=== PATIENT | male | born 1960 | race Hispanic/Latino ===

== ENCOUNTER 2019-09-15 09:44 | Day surgery (SDC) | payer OTHER ==
[2019-09-15] MEDS ORDERED: ceFAZolin/STERILE WATER 2 GM/20 ML SYRINGE IV NR (10:30)
[2019-09-15] MEDS ORDERED: SODIUM CHLORIDE 0.9% 1000 ML 1,000 ML ONE (10:44)
--- NOTE | 2019-09-15 10:49 | Anesthesia Consultation ---
Anesthesia Consult and Med Hx Date of service: 09/15/19 - Airway Anesthetic Teeth Evaluation: Good, Caps, Crowns ROM Head & Neck: Adequate Mental/Hyoid Distance: Adequate Mallampati Class: Class III Intubation Access Assessment: Possibly Difficult - Pre-Operative Health Status ASA Pre-Surgery Classification: ASA3 Proposed Anesthetic Plan: General - Pulmonary Hx Smoking: Yes (STOPPED X 24 YRS) Hx Sleep Apnea: Yes (DX SLEEP APNEA WITH NO CPAP USE AMA) - Cardiovascular System Hx Hypertension: No - Endocrine Hx Renal Disease: Yes (kidney stones) - Other Systems Hx Cancer: No Hx Obesity: Yes (BMI 37.5)
--- NOTE | 2019-09-15 10:50 | Anesthesia Day of Surgery ---
Anesthesia Day of Surgery - Day of Surgery Patient Examined: Yes Patient H&P Reviewed: Yes Patient is NPO: Yes
[2019-09-15] MEDS ORDERED: MIDAZOLAM 2 MG/2 ML INJ IV NR (11:00)
[2019-09-15] MEDS ORDERED: SODIUM CHLORIDE 0.9% 1000 ML 1,000 ML IV SCH (11:00)
[2019-09-15] MEDS ORDERED: FAMOTIDINE 20 MG/2 ML INJ IV NR (11:00)
[2019-09-15] MEDS ORDERED: fentaNYL 100 MCG/2 ML INJ ONE (11:29)
[2019-09-15] MEDS ORDERED: LIDOCAINE MPF (2%) 20 MG/1 ML VIAL 5 ML ONE (11:29)
[2019-09-15] MEDS ORDERED: propofoL 200 MG/20 ML VIAL IV ONE (11:30)
[2019-09-15] MEDS ORDERED: dexAMETHasone 20 MG/5 ML VIAL ONE (11:32)
[2019-09-15] MEDS ORDERED: ONDANSETRON 4 MG/2 ML INJ ONE (11:32)
[2019-09-15] MEDS ORDERED: MIDAZOLAM 2 MG/2 ML INJ ONE (12:21)
[2019-09-15] MEDS ORDERED: KETOROLAC 30 MG/1 ML INJ ONE (12:47)
[2019-09-15] MEDS ORDERED: FUROSEMIDE 40 MG/4 ML INJ ONE (13:01)
[2019-09-15] MEDS ORDERED: WATER FOR IRRIG STERILE 2000 ML IR ONE (13:07)
[2019-09-15] MEDS ORDERED: GENTAMICIN/NS 80 MG/100 ML 100 ML IV SCH (13:27)
[2019-09-15] MEDS ORDERED: GENTAMICIN 40 MG/ML VIAL 2 ML ONE (13:51)
[2019-09-15] MEDS ORDERED: SODIUM CHLORIDE 0.9% 0 ML ONE (13:53)
--- NOTE | 2019-09-15 13:59 | Operative Report ---
PREOPERATIVE DIAGNOSIS: Large upper ureteral stone. POSTOPERATIVE DIAGNOSIS: Large upper ureteral stone. PROCEDURE: Cystoscopy, ureteroscopy, retrograde stone transposition, double-J stent. SURGEON: Dr. Gutierres. ANESTHESIA: General. FINDINGS: This is a gentleman with a large stone in the upper ureter. He now presents for treatment. All risks and implications discussed. DESCRIPTION OF PROCEDURE: The patient was brought to the operating room and placed on the operating table. Following induction of anesthesia, placed in lithotomy position, prepped and draped in usual sterile fashion. Cystourethroscopy showed the stone at the level of L3. Retrograde showed the stone and there was kinking just below it. We were able to place two wires up in the ureter. Balloon dilatation was carried out. We got up to the stone, could not look like we pushed it up into the kidney. We could not get by the narrowed area. We tried even with a little dilator, the inner sheath from the ureteral sheath. Since it was very tight, we did not want to perforate. We placed a 6 double J, brought to recovery in stable condition. Family notified. JOB# [id number] LATONIA/TIM
--- NOTE | 2019-09-15 14:24 | Fluoroscopy Report ---
INTRAOPERATIVE FLUOROSCOPY: RETROGRADE UROGRAPHY AND LEFT NEPHROSTOMY PLACEMENT. INDICATION / CLINICAL INFORMATION: LT KIDNEY STONE. TECHNIQUE: Intraoperative spot images were obtained during the procedure. FINDINGS: Images show cystography, left retrograde ureteroscopy with balloon dilation and left ureteral stent p lacement. Please see operative note for complete detail. Fluoroscopy Time: 2.1 minutes. Fluoroscopy Images: 10. Signer Name: Campos Tran MD Signed: 09/15/2019 2:20 PM Workstation Name: [id number]
--- NOTE | 2019-09-15 14:55 | Post Anesthesia Evaluation ---
- Post Anesthesia Evaluation Patient Participated: Yes Airway Patent: Yes Stable Respiratory Function: Yes Nausea/Vomiting: No Temp > 96.8F: Yes Pain Manageable: Yes Adequeate Hydration: Yes Anesthesia Complications: No
--- NOTE | 2019-09-15 15:04 | Post Operative Note ---
Date of procedure: 09/15/19 Pre-op diagnosis: l ureteral stone Post-op diagnosis: same Findings: as above Procedure: cysto ureteroscopy j stent Anesthesia: GETA Surgeon: KOBY VAZQUEZ Estimated blood loss: minimal Pathology: none Condition: stable Disposition: PACU
--- NOTE | 2019-09-15 15:05 | Discharge Summary ---
Short Stay Discharge Plan Activity: other (no straining ) Weight Bearing Status: Full Weight Bearing Diet: low fat, low cholesterol, low salt Special Instructions: other (inc fluids ) Follow up with: STEPHANIE HARDING MD [Primary Care Provider] - 7 Days KOBY VAZQUEZ MD [Staff Physician] - 7 Days
[2019-09-15 15:15] VITALS: BP 158/92
== END 2019-09-15 15:40 | disposition home or self-care (01) ==
LOC: OR 09:44
PROVIDERS: ATTEND Urology
DX: N20.1 Calculus of ureter (principal); G47.30 Sleep apnea, unspecified; E66.9 Obesity, unspecified; Z79.899 Other long term (current) drug therapy; Z87.891 Personal history of nicotine dependence; Z79.82 Long term (current) use of aspirin; Z88.8 Allergy status to other drugs, medicaments and biological substances; Z86.2 Personal history of diseases of the blood and blood-forming organs and certain disorders involving the immune mechanism
CPT/HCPCS: 74420; A4217; C1726; C1758; C1769; C2617; J1100; J1580; J1885; J1940; J2250; J2405; J2704; J3010; J7030; Q9967